=== PATIENT | female | born 1985 | race Hispanic/Latino ===

== ENCOUNTER → 2017-08-08 | Day surgery (SDC) | payer BC, MEDICARE ==
[2017-08-05 15:49] LABS: BASOPHILS # (AUTO) 0.1 (0.0-0.1); BASOPHILS % 0.7 % (0.0-1.0); EOSINOPHILS # (AUTO) 0.5 (0.0-0.4); HEMATOCRIT 34.5 % (34.2-44.1); HEMOGLOBIN 10.8 g/dL (12.0-16.0); LYMPHOCYTES # (AUTO) 2.5 (1.0-3.2); LYMPHOCYTES % 25.5 % (18.0-39.1); MEAN CORPUSCULAR HEMOGLOBIN 24.4 pg (28-32); MEAN CORPUSCULAR HGB CONC 31.3 g/dL (31-35); MEAN CORPUSCULAR VOLUME 78.1 fL (81-99); MONOCYTES # (AUTO) 0.6 (0.2-0.8); MONOCYTES % 6.6 % (4.4-11.3); NEUTROPHILS % 61.8 % (38.7-80.0); PLATELET COUNT 346 x10e3/uL (140-360); RED BLOOD COUNT 4.42 x10e6/uL (3.6-5.1); RED CELL DISTRIBUTION WIDTH 15.2 % (11.7-14.4)
[~2017-08-08] MED LIST: ACETAMINOPHEN 1000 MG/100 ML 100 ML IV ONE; BUPIVACAINE 0.25%/EPI 30ML SDV INJ ONE; BUSPIRONE HCL5 MG PO; DEXAMETHASONE SOD PHOS INJ 4 MG/ML VIAL ONE; FENTANYL CITRATE/PF 100MCG/2 ML INJ ONE; FLUOXETINE HCL20 M1 PO; GLYCOPYRROLATE INJ 1MG/ 5 ML SYR ONE; KETOROLAC TROMETHAMINE 30 MG/ML VIAL ONE; LIDOCAINE HCL 2% LOCAL INJ 5 ML SDV VIAL INJ ONE; MIDAZOLAM HCL 2 MG/2 ML VIAL ONE; NEOSTIGMINE 5 MG/5ML SYR ONE; NEXPLANON68 MG; ONDANSETRON HCL INJ 2 MG/ML VIAL ONE; PROPOFOL IV EMULSION 10 MG/ML 20 ML VIAL ONE; ROCURONIUM BROMIDE 10 MG/ML 5ML VIAL ONE; SEVOFLURANE INHAL SOLN 250 ML PEN BTL ONE; SUCCINYLCHOLINE 200 MG/10 ML SYR ONE; Z.0.ZOLOFT100 MG PO; ZOLOFT; ZOLOFT100 MG PO
--- NOTE | 2017-08-08 17:40 | Operative Report ---
DATE OF PROCEDURE: August 08, 2017 PREOPERATIVE DIAGNOSIS: Requesting sterilization. POSTOPERATIVE DIAGNOSIS: Requesting sterilization. PROCEDURE PERFORMED: Laparoscopic bilateral tubal occlusion. COMPLICATIONS: None. ESTIMATED BLOOD LOSS: Minimal. PROCEDURE: The patient was taken to the OR where general anesthesia was placed. She was prepped and draped in the normal sterile fashion and placed in the dorsal supine position with the Ambriz catheter anterior to the bladder. A Hulka self-retaining uterine manipulator was passed through the cervix into the uterine cavity. Two Allis clamps were applied to the umbilicus to vinod the umbilicus. An infraumbilical skin incision was made with a scalpel. The 5-mm bladeless trocar and cannula was passed through the umbilicus into the abdominal cavity without difficulty. Trocar was removed, and the abdomen was inflated with carbon dioxide gas and the scope was slid through the sleeve into the abdominal cavity. Patient was placed in Trendelenburg position at this stage, and good visualization of the pelvis was obtained. Another 8-mm incision was made in the right lower quadrant, and the 8-mm bladeless trocar and cannula was introduced inside the abdominal cavity and under direct visualization the trocar was removed and the Surgiclip was passed through the port into the abdominal cavity. Surgiclips were applied across the fallopian tubes without difficulty. Uterus looks normal. A small paratubal cyst about 2 cm was seen on the left tube. No evidence of adhesions or endometriosis. The abdomen was deflated. The instruments were removed from the abdomen, and Dermabond was applied on the skin to approximate the skin entry points. The patient tolerated the procedure well. Lap, instrument and needle count was correct x2 at the end of the procedure. Job#: [id number]
== END | disposition home or self-care (01) ==
LOC: OR 12:10
PROVIDERS: ATTEND Obstetrics & Gynecology
DX: Z30.2 Encounter for sterilization (principal); N83.8 Other noninflammatory disorders of ovary, fallopian tube and broad ligament; D64.9 Anemia, unspecified; E66.9 Obesity, unspecified; F41.9 Anxiety disorder, unspecified; F32.9 Major depressive disorder, single episode, unspecified; Z72.0 Tobacco use; Z01.812 Encounter for preprocedural laboratory examination
CPT/HCPCS: 36415; 58671; 81025; 84702; 85025; J1100; J1885; J2001; J2250; J2405; J3490

== ENCOUNTER 2017-08-15 10:29 | Emergency (ER) | payer BC, OTHER ==
[~2017-08-15] VITALS: Ht 160 cm; Wt 113.4 kg
[~2017-08-15 10:29] MED LIST changes: -ACETAMINOPHEN 1000 MG/100 ML 100 ML IV ONE; -BUPIVACAINE 0.25%/EPI 30ML SDV INJ ONE; -DEXAMETHASONE SOD PHOS INJ 4 MG/ML VIAL ONE; -FENTANYL CITRATE/PF 100MCG/2 ML INJ ONE; -GLYCOPYRROLATE INJ 1MG/ 5 ML SYR ONE; -KETOROLAC TROMETHAMINE 30 MG/ML VIAL ONE; -LIDOCAINE HCL 2% LOCAL INJ 5 ML SDV VIAL INJ ONE; -MIDAZOLAM HCL 2 MG/2 ML VIAL ONE; -NEOSTIGMINE 5 MG/5ML SYR ONE; -ONDANSETRON HCL INJ 2 MG/ML VIAL ONE; -PROPOFOL IV EMULSION 10 MG/ML 20 ML VIAL ONE; -ROCURONIUM BROMIDE 10 MG/ML 5ML VIAL ONE; -SEVOFLURANE INHAL SOLN 250 ML PEN BTL ONE; -SUCCINYLCHOLINE 200 MG/10 ML SYR ONE
[2017-08-15 12:34] VITALS: BP 124/76
== END 2017-08-15 12:46 | disposition home or self-care (01) ==
LOC: FSED 10:29
DX: R10.33 Periumbilical pain (principal)
CPT/HCPCS: 74177; 80048; 81003; 81025; 85025; 99284